=== PATIENT | male | born 1990 | race Caucasian/White ===

== ENCOUNTER 2022-03-16 05:35 | Day surgery (SDC) | payer OTHER ==
[~2022-03-16] VITALS: Ht 175.3 cm; Wt 81.6 kg
[2022-03-16] MEDS ORDERED: NORCO 325 MG-51 TAB PO (08:32)
[2022-03-16 09:05] VITALS: BP 132/76; PULSE 50; TEMP 97.2
--- NOTE | 2022-03-16 09:05 | NUR ---
0905 PATIENT RETURNS TO ROOM 7 VIA CART. PATIENT IS ALERT AND ORIENTED, STATES HIS PAIN LEVEL IS A 3/10 AND DOES NOT WANT ANY PAIN MEDICATION AT THIS TIME. 3 LAP SITES TO ABDOMEN, ALL COVERED WITH BANDAIDS, ALL CDI. RESPIRATIONS EVEN AND UNLABORED. VITAL SIGNS OBTAINED. PATIENT DOES NOT WANT ANYTHING TO EAT AT THIS TIME. 0920 PATIENT STATES THAT HIS PAIN LEVEL IS A 5/10 AND DOES NOT WANT ANY PAIN MEDS AT THIS TIME. 0930 THIS NURSE CHECKS ON PATIENT AGAIN TO SEE HOW HIS PAIN IS, HE STATES IT IS NOW A 7/10 AND WOULD LIKE SOMETHING FOR PAIN. THIS NURSE GIVES PRN PAIN MED ALONG WITH ZOFRAN. THIS NURSE PROVIDED MEDICATION EDUCATION TO PATIENT. 0945 THIS NURSE WENT OVER DISCHARGE INSTRUCTIONS. PATIENT VERBALIZED UNDERSTANDING. 0955 DISCONTINUE IV FROM LEFT FOREARM WITH NO DIFFICULTIES. 1000 PATIENT DRESSES SELF. 1010 PATIENT DISCHARGES FROM UNIT VIA WHEELCHAIR.
[2022-03-16 09:15] VITALS: TEMP 98.7
[2022-03-16 09:20] VITALS: BP 131/80; PULSE 62
[2022-03-16 09:35] VITALS: BP 119/55; PULSE 67
== END 2022-03-16 10:10 | disposition home or self-care (01) ==
LOC: SDCO 05:35
DX: K40.90 Unilateral inguinal hernia, without obstruction or gangrene, not specified as recurrent (principal)
CPT/HCPCS: C1781; J0330; J0690; J1100; J1885; J2250; J2405; J2704; J3010; J7120